=== PATIENT | male | born 1940 | race Caucasian/White ===

== ENCOUNTER 2018-06-11 12:40 | Inpatient (IN) | payer MEDICARE, OTHER ==
[~2018-06-11] VITALS: Ht 182.9 cm; Wt 93.0 kg
[2018-06-11] VITALS (28 sets, daily range): BP systolic 116–166; BP diastolic 53–102
--- NOTE | ~2018-06-11 | CON ---
[address] [address] CONSULTATION Name: ALEX MATHEWS Aly Room: [address] IN .R.#: [id number] Admission: 06/11/18 Attend Phys: Dalia Renee MD Discharge: Date of : 38 Report #: [id number] THIS REPORT FOR: //name// CC: FAM unknown Daila Renee DATE OF SERVICE: 06/11/2018 HISTORY OF PRESENT ILLNESS: This is a 77-year-old male patient for whom a consultation was requested by Dr. Ruiz from Emergency Room. This patient has presented with acute onset of expressive aphasia. When he came in, he had some other symptoms including visual field deficit and talking to Dr. Ruiz he also had some ataxia on the right side. He was inside the window for TPA. Dr. Ruiz has already done a CT scan of the head, CT angiogram of the head and neck prior to Neurology consult and I came to Emergency Room and saw the patient, he was getting TPA. His symptom has improved. He was still having pretty significant aphasia, but he said he was getting better. His rest of the symptoms have improved or resolved. I talked to the patient's fiancee who provided most of the history. REVIEW OF SYSTEMS: Indicates he does have a prior history of coronary artery disease, but he does not have any history of stroke in the past. Apparently, he is a very lively person and this is very unusual for him. He does have a history of celiac disease. This was his relevant 14-point review of systems. PAST MEDICAL HISTORY: Negative for any stroke. I had talked to the Emergency Room physician and as I understand from her she has undergone exclusion criteria with him and she did not find anything, which can exclude him from TPA and after that she has started him on TPA. PAST MEDICAL HISTORY: Negative for stroke. FAMILY HISTORY: Negative for early age stroke. SOCIAL HISTORY: He said he does not drink alcohol. PHYSICAL EXAMINATION: Indicates that the patient is alert, responsive. He does talk pretty hesitantly. He is most of the time able to follow simple command. His memory does appear to be poor, but his cranial nerve examination appeared unremarkable to me. His neurological examination was symmetrical. There was no meningeal sign. There is no carotid bruit. Cardiac examination clinically appeared unremarkable. His blood pressure last one was 143/89, respirations 18. I reviewed his CT angiogram with the radiologist that was unremarkable, but his perfusion scan was not done. IMPRESSION: This patient has presented [place] [address] CONSULTATION Name: ALEX MATHEWS Room: [address] IN [facility]#: [id number] Admission: 06/11/18 Attend Phys: Dalia Renee MD Discharge: Date of : 38 Report #: [id number] hemispheric ischemia. I talked to the patient that at this time it is not possible to tell if the patient had a cerebrovascular accident or not, but there is no time to confirm the diagnosis because by the time the diagnosis is confirmed, the time to give TPA will pass. He had been explained by Emergency Room physician. He has been explained the potential complication of TPA including catastrophic intracerebral hemorrhage and I reinforced that. After explaining all of that to the patient, the patient was already on TPA and TPA was continued. Subsequently, I got the MRI done. MRI appeared unremarkable. He has no complication for TPA so far. Symptoms suggestive of left hemispheric ischemia, which appeared to have resolved, but presently the CT scan looks unremarkable and so is MRI. His glomerular filtration rate is low, so I am going to go ahead and give him some fluid. He has already passed the bedside swallow according to the nurses and he is on clear liquid for the time being. We need to push fluids on him. His blood pressure must be kept less than 180 systolic and I talked to the nurses about that. It is running well below that. It will be okay to keep the blood pressure low on him because his blood vessels are open and I am going to go ahead and do an EEG since we did not find any ischemia on MRI and we will reevaluate him tomorrow and see how he does. A total of more than 50 minutes of time was spent taking care of this patient and majority of that time was spent counseling and coordinating the patient's care. By: [id number] Maria MD /nt
--- NOTE | ~2018-06-11 | EEG ---
[address] [address] EEG STUDY REPORT Name: ALEX MATHEWS Room: [address] IN [facility]#: [id number] Admission: 06/11/18 Attend Phys: Dalia Renee MD Discharge: Date of : 38 Report #: [id number] THIS REPORT FOR: //name// CC: FAM unknown Dalia Renee DATE OF SERVICE: 06/12/2018 This patient is being evaluated for altered mental status and difficulty with talking. EEG was done by placing the electrodes by standard 10-20 system of electrode placement. Both referential and sequential montages were used for recording. Background activity in this patient's EEG is about 9 Hz and 30 microvolt. It is a symmetrical activity. The patient went to sleep that is associated with bilateral slowing and vertex sharp waves. Photic stimulation was unremarkable. Throughout the record, no active epileptiform activity was noticed. IMPRESSION: This patient's EEG was unremarkable. I did not see any slowing on the left side, which can explain the patient's difficulty with aphasia. Clinical correlation is recommended. By: [id number] 1924Pfariba Maria MD /nt
[2018-06-11 13:07] LABS: ABSOLUTE BASOPHILS 0.1 thou/uL (0.0-0.2); ABSOLUTE EOSINOPHILS 0.1 thou/uL (0.0-0.7); ABSOLUTE LYMPHOCYTES 2.6 thou/uL (0.8-5.3); ABSOLUTE MONOCYTES 0.8 thou/uL (0.0-1.2); ABSOLUTE NEUTROPHILS 6.7 thou/uL (1.6-8.1); EOSINOPHILS 0.6 %; HEMATOCRIT 43.8 % (42.0-52.0); LYMPHOCYTES 25.1 %; MCH 33.1 pg (26.0-34.0); MCHC 34.3 g/dL (28.0-37.0); MCV 96.5 fL (80.0-100.0); MONOCYTES 8.1 %; MPV 7.9 fl. (7.2-11.1); NUCLEATED RBCS 0 /100WBC; PLATELET COUNT* 245 thou/uL (150-400); POLYS 65.2 %; RBC 4.54 mil/uL (4.50-6.00); RDW-CV 12.7 % (10.5-14.5); WBC 10.3 thou/uL (4.0-11.0)
[2018-06-11 13:14] LABS: INR 1.1; PROTIME 11.1 Seconds (9.20-11.50)
[2018-06-11 13:21] LABS: ALBUMIN 3.5 g/dL (3.4-5.0); ALKALINE PHOSPHATASE 60 U/L (46-116); ANION GAP 11 mmol/L (7-16); BUN 17 mg/dL (7-18); CALCIUM 8.9 mg/dL (8.5-10.1); CHLORIDE 102 mmol/L (98-107); CO2 26 mmol/L (21-32); CREATININE 1.6 mg/dL (0.6-1.3); GLUCOSE 146 mg/dL (70-99); POTASSIUM 3.9 mmol/L (3.5-5.1); SGOT 24 U/L (15-37); SGPT 82 U/L (30-65); SODIUM 139 mmol/L (136-145); TOTAL BILIRUBIN 0.9 mg/dL (<0.1-1.0); TROPONIN-I LEVEL <0.06 ng/mL (<0.06)
[2018-06-11] MEDS ORDERED: ASPIR 8181 M1 PO (15:29)
[2018-06-11] MEDS ORDERED: FOLIC ACID1 MG PO (15:29)
[2018-06-11] MEDS ORDERED: LISINOPRIL40 MG PO (15:30)
[2018-06-11 17:08] LABS: URINE BILIRUBIN NEGATIVE (Negative); URINE BLOOD NEGATIVE (Negative); URINE CLARITY CLEAR; URINE COLOR YELLOW; URINE GLUCOSE-RANDOM NEGATIVE (Negative); URINE KETONES NEGATIVE (Negative); URINE LEUKOCYTES-REFLEX NEGATIVE (Negative); URINE NITRITE-REFLEX NEGATIVE (Negative); URINE PROTEIN NEGATIVE (Negative); URINE SPECIFIC GRAVITY <= 1.005 (1.005-1.030); URINE UROBILINOGEN 0.2 E.U./dl (0.2-1.0)
[2018-06-11] MEDS ORDERED: [UNRECOGNIZED DRUG - OTHER] PO (17:58)
[2018-06-11] MEDS ORDERED: CITRACAL PO (18:00)
[2018-06-11] MEDS ORDERED: VITAMIN D1000 UNI1 PO (18:00)
[2018-06-11] MEDS ORDERED: LIPITOR80 MG PO (18:01)
[2018-06-11] MEDS ORDERED: VITAMIN B12 PO (18:01)
--- NOTE | 2018-06-11 18:30 | NUR ---
PT PASSED BEDSIDE SWALLOW. PT TOLERATING CLEAR LIQUID DIET.
--- NOTE | 2018-06-11 18:50 | NUR ---
PATIENT RECEIVED IN ICU AT 1640 FROM ER AFTER MRI, ALERT AND ORIENTED TO PERSON AND PLACE. PATIENT COMPLETED TPA ADMINISTRATION IN ER AT 1503. VITALS WITHIN NORMAL RANGE. ADMISSION ASSESSMENT AND PROCEDURE COMPLETED. PATIENT TOLERATING CLEAR LIQUID DIET. NO ANY SPECIFIC COMPLAINTS FROM THE PATIENT'S SIDE.
[2018-06-12] VITALS (19 sets, daily range): BP systolic 99–163; BP diastolic 42–93
[2018-06-12 03:54] LABS: HEMATOCRIT 40.7 % (42.0-52.0); HEMOGLOBIN 13.9 gm/dL (14.0-18.0); MCH 32.9 pg (26.0-34.0); MCHC 34.1 g/dL (28.0-37.0); MCV 96.6 fL (80.0-100.0); MPV 7.6 fl. (7.2-11.1); RBC 4.21 mil/uL (4.50-6.00); RDW-CV 12.5 % (10.5-14.5); WBC 9.8 thou/uL (4.0-11.0)
[2018-06-12 04:21] LABS: ANION GAP 8 mmol/L (7-16); BUN 17 mg/dL (7-18); CHLORIDE 105 mmol/L (98-107); CHOLESTEROL 82 mg/dL (<200); CO2 27 mmol/L (21-32); CREATININE 1.2 mg/dL (0.6-1.3); GLUCOSE 110 mg/dL (70-99); HDL CHOLESTEROL 35 mg/dL (>40); LDL CHOLESTEROL 32 mg/dL (<100); MAGNESIUM 1.7 mg/dL (1.8-2.4); POTASSIUM 4.1 mmol/L (3.5-5.1); SODIUM 140 mmol/L (136-145); TC:HDL 2.3 Ratio (Not establshd); TRIGLYCERIDE 77 mg/dL (<150); VLDL 15 mg/dL (<40)
[2018-06-12 04:27] LABS: SERUM ASSESSMENT CLEAR
--- NOTE | 2018-06-12 05:40 | NUR ---
patient progressing towards goals. alert and orient x3 pt does not answer age question appropriately. pt NIH of 2 d/t mild aphasia pt speech is non-fluent at times requiring great effort to formulate simple words. spoke with neuro . last night orders given to start pt on IV fluids and to keep systolic BP less then 180. pt voided per urnal adequately. monitoring NIH q1h per protocol. pt denies pain, n&v. no bleeding noted. pt currently sleeping. bed to lowest position, call light in place. PT/OT/ST ordered. spoke with pt brother last night updated on current care. voiced understanding. will continue to monitor closely.
--- NOTE | 2018-06-12 12:36 | EKG ---
[place] [address] ELECTROCARDIOGRAM REPORT Name: ALEX MATHEWS Room: [address] ADM IN [facility]#: [id number] Admission: 06/11/18 Attend Phys: Dalia Renee MD Discharge: Date of : 38 Report #: [id number] THIS REPORT FOR: //name// [facility] ED Test Date: 2018-06-11 Test Time: 13:02:23 Pat Name: ALEX MATHEWS Department: Room: [facility] Gender: M [employer]: : 1940 Requested By: Pilar Ruiz Order Number: [id number] MD: Jonathan Gomez Measurements Intervals [place] Rate: 87 P: 43 MA: 224 QRS: 20 QRSD: 78 T: 106 QT: 362 QTc: 436 Interpretive Statements Sinus rhythm Prolonged MA interval Abnormal R-wave progression, early transition Borderline repolarization abnormality Baseline wander in lead(s) V4 No previous ECG available for comparison Electronically Signed On 06-12-2018 12:36:22 CDT by Jonathan Gomez [email or web address] <ELECTRONICALLY SIGNED> By: Jonathan Gomez MD, [facility] 06/12/18 1236 1302 1302 Jonathan Gomez MD, [facility] /EPI
--- NOTE | 2018-06-12 12:38 | 2DMMODE ---
[place] [address] 2 D/M-MODE ECHOCARDIOGRAM Name: BISIALEX L Room: [address] IN [facility]#: [id number] Admission: 06/11/18 Attend Phys: Dalia Renee, Discharge: Date of : 38 Date of Service: 06/12/18 1238 Report #: [id number] THIS REPORT FOR: //name// APPROVED REPORT Study performed: 06/12/2018 09:37:38 EXAM: Comprehensive 2D, Doppler, and color-flow Echocardiogram Patient Location: In-Patient Room #: [facility] Status: routine BSA: 2.15 HR: 59 bpm BP: 122/59 mmHg Rhythm: NSR Other Information Study Quality: Good Indications CVA/TIA CAD Echo Enhancing Agent Indication: Rule out Shunt Agent(s) / Amount(s) Used: Agitated Saline 10 cc 2D Dimensions IVSd: 9.92 (7-11mm) LVOT Diam: 20.77 (18-24mm) LVDd: 44.90 mm PWd: 9.77 (7-11mm) Ascending Ao: 28.65 (22-36mm) LVDs: 25.07 (25-40mm) Aortic Root: 32.68 mm Volumes Left Atrial Volume (Systole) LA ESV Index: 21.80 mL/m2 Aortic Valve AoV Peak Topher.: 1.25 m/s AO Peak Gr.: 6.22 mmHg LVOT Max P.48 mmHg AO Mean Gr.: 3.27 mmHg LVOT Mean P.78 mmHg LVOT Max V: 1.06 m/s AO V2 VTI: 25.88 cm LVOT Mean V: 0.59 m/s IRVING (VTI): 3.18 cm2 LVOT V1 VTI: 24.29 [place] [address] 2 D/M-MODE ECHOCARDIOGRAM Name: ALEX MATHEWS Room: [address] IN [facility]#: [id number] Admission: 06/11/18 Attend Phys: Dalia Renee, Discharge: Date of : 38 Date of Service: 06/12/18 1238 Report #: [id number] Mitral Valve E/A Ratio: 1.28 MV Decel. Time: 221.70 ms MV E Max Topher.: 0.75 m/s MV PHT: 64.29 ms MVA (PHT): 3.42 cm2 TDI E/Lateral E': 6.82 E/Medial E': 9.38 Medial E' Topher.: 0.08 m/s Lateral E' Topher.: 0.11 m/s Pulmonary Valve PV Peak Topher.: 0.94 m/s PV Peak Gr.: 3.54 mmHg Tricuspid Valve RAP Estimate: 5.00 mmHg TR Peak Gr.: 17.68 mmHg RVSP: 22.00 mmHg PA Pressure: 22.00 mmHg Left Ventricle The left ventricle is normal size. There is normal LV segmental wall motion. There is normal left ventricular wall thickness. Left ventricular systolic function is normal. The left ventricular ejection fraction is within the normal range. LVEF is 60-65%. The left ventricular diastolic function is normal. Right Ventricle The right ventricle is normal size. The right ventricular systolic function is normal. Atria The left atrium size is normal. Interatrial septum is intact without evidence of ASD or PFO.Negative bubble study. The right atrium size is normal. Aortic Valve The aortic valve is normal in structure. Trace aortic regurgitation. There is no aortic valvular stenosis. Mitral Valve The mitral valve is normal in structure. Trace mitral regurgitation. No evidence of mitral valve stenosis[place] [address] 2 D/M-MODE ECHOCARDIOGRAM Name: ALEX MATHEWS Room: [address] IN [facility]#: [id number] Admission: 06/11/18 Attend Phys: Dalia Renee, Discharge: Date of : 38 Date of Service: 06/12/18 1238 Report #: [id number] The tricuspid valve is normal in structure. Mild tricuspid regurgitation. No pulmonary hypertension. Pulmonic Valve The pulmonary valve is normal in structure. Trace pulmonic regurgitation. Great Vessels The aortic root is normal in size. IVC is normal in size and collapses >50% with inspiration. Pericardium There is no pericardial effusion. <Conclusion> LVEF is 60-65%. The left ventricular diastolic function is normal. There is normal LV segmental wall motion. There is no aortic valvular stenosis. Trace aortic regurgitation. Mild tricuspid regurgitation. No pulmonary hypertension. Interatrial septum is intact without evidence of ASD or PFO.Negative bubble study. <ELECTRONICALLY SIGNED> By: Doug Long MD, FACC 06/12/18 1238 1238 1238 Doug Long MD, FACC /INF
--- NOTE | 2018-06-12 19:37 | NUR ---
PT ASSESSMENT CHARTED. VSS THROUGHOUT THE DAY. NIH 0. TRANSFER TO ROOM 203 AT 1845. MAGNESIUM REPLACED WITH FOLLOW UP LAB AT 1999. PT AND ST SAW PATIENT TODAY. UP TO CHAIR WITH 1 ASSIST WITHOUT DIFFICULTY. NO COMPLAINTS OF PAIN. [address] SCAN DONE AT 1400. DAY 2 ISCHEMIC STROKE ORDERS FOLLOWED UP WITH DR. MORTON. ASA RESTARTED AND SCD'S INITIATED. NO STATIN OR LOVENOX INDICATED.
[2018-06-12 22:06] LABS: GLYCOHEMOGLOBIN (HGB A1C) 5.9 % (4.8-5.6)
[2018-06-13] VITALS: BP 121/68
[2018-06-13 04:00] VITALS: BP 124/64
[2018-06-13 04:27] LABS: HEMATOCRIT 40.2 % (42.0-52.0); HEMOGLOBIN 13.8 gm/dL (14.0-18.0); MCHC 34.2 g/dL (28.0-37.0); MCV 96.6 fL (80.0-100.0); MPV 7.9 fl. (7.2-11.1); RBC 4.17 mil/uL (4.50-6.00); RDW-CV 12.7 % (10.5-14.5)
[2018-06-13 04:53] LABS: ALBUMIN 2.9 g/dL (3.4-5.0); CALCIUM 8.3 mg/dL (8.5-10.1); CREATININE 1.3 mg/dL (0.6-1.3); MAGNESIUM 2.1 mg/dL (1.8-2.4); POTASSIUM 4.1 mmol/L (3.5-5.1); TOTAL BILIRUBIN 0.7 mg/dL (<0.1-1.0)
--- NOTE | 2018-06-13 07:41 | NUR ---
ASSUMED PT CARE AT 1930. ASSESSMENT COMPLETED CHARTED. ABLE TO MAKE NEEDS KNOWN. NO C/O PAIN OR DISCOMFORT. CALLS OUT APPROPRIATELY. PT SLEPT IN BED ALL NIGHT. WILL CONTINUE TO MONITOR.
[2018-06-13 08:00] VITALS: BP 127/71
--- NOTE | 2018-06-13 11:46 | NUR ---
vss, assumed care in the am, assessment performed and charted, fall precautions in place and call light in reach, pt is a&o4 and on ra, tracing sr on the monitor, he gets up with stand by, he has dressed himself and wanting to go home, PT NEEDS TO WORK WITH OT TODAY BEFORE LEAVING, PT DENIES ANY PAIN AND HE WANTS TO GO HOME TODAY WILL FOLLOW WITH PLAN OF CARE.
[2018-06-13 12:00] VITALS: BP 129/67
[2018-06-13] MEDS ORDERED: ASPIRIN325 PO (12:22)
[2018-06-13] MEDS ORDERED: FISH OIL 1,001000 M2 PO (12:22)
[2018-06-13] MEDS ORDERED: [UNRECOGNIZED DRUG - OTHER] PO (13:33)
[2018-06-13 13:39] VITALS: BP 129/67
[2018-06-13 13:48] VITALS: BP 129/67
--- NOTE | 2018-06-13 14:35 | NUR ---
VSS, RECIEVED D/C ORDERS, TOOK OUT IV AND TELE MONITOR, PROVITED SCRIPTS/ D/C PAPERS AND INSTRUCTIONS, PY DENIES ANY QUESTIONS AT TIME OF D/C. PT IS TO HAVE HOME HEALTH SET UP, PT TAKEN OUT BY STAFF TO CARE, HOURLY ROUNDS COMPLETED
== END 2018-06-13 14:43 | disposition home health service (06) | DRG 61 ==
LOC: M.ERS 12:40 → M.ICU 14:49 → M.TBA-ER 14:49 → M.ICU 17:07 → M.2W 06-12 18:49
PROVIDERS: Personal Emergency Response Attendant; ADMIT Internal Medicine
DX: I63.9 Cerebral infarction, unspecified (principal); G93.41 Metabolic encephalopathy; G81.94 Hemiplegia, unspecified affecting left nondominant side; I10 Essential (primary) hypertension; J45.909 Unspecified asthma, uncomplicated; Z88.8 Allergy status to other drugs, medicaments and biological substances; Z79.82 Long term (current) use of aspirin; Z79.899 Other long term (current) drug therapy